=== PATIENT | male | born 1950 | race Two or more races ===

== ENCOUNTER 2019-03-08 17:32 | Inpatient (IN) | payer MEDICAID, OTHER ==
[~2019-03-08] VITALS: Ht 167.6 cm; Wt 63.0 kg
[2019-03-08] MEDS ORDERED: SODIUM CHLORIDE 0.9% 1,000 ML IV ONE (19:11)
[2019-03-08] MEDS ORDERED: MECLIZINE 25MG TABLET PO ONE (19:15)
[2019-03-08 19:46] LABS: HEMATOCRIT. 39.2 % (42.0-52.0); HEMOGLOBIN. 13.4 g/dL (14.0-18.0); MEAN CORPUSCULAR HEMOGLOBIN 34.6 pg (28.0-32.0); MEAN CORPUSCULAR VOLUME 101.1 fL (80.0-94.0); MEAN PLATELET VOLUME 8.3 fl (7.4-10.4); PLATELET 207 x1000/uL (130-400); RED BLOOD CELL COUNT 3.87 mill/uL (4.7-6.1); RED CELL DISTRIBUTION WIDTH 12.8 % (11.6-14.6)
[2019-03-08 19:49] LABS: CHLORIDE 101 mEq/L (98-107)
[2019-03-08 19:54] LABS: ETHANOL BLOOD < 10 mg/dL
[2019-03-08 20:10] LABS: PLATELET ESTIMATE NORMAL
[2019-03-08 20:14] LABS: *AMPHETAMINES SCREEN URINE NEGATIVE (NEGATIVE); CANNABINOID URINE SCREEN NEGATIVE (NEGATIVE)
[2019-03-08 20:15] LABS: *BARBITURATES SCREEN URINE NEGATIVE (NEGATIVE); *BENZODIAZEPINES SCREEN URINE NEGATIVE (NEGATIVE); *COCAINE SCREEN URINE NEGATIVE (NEGATIVE); METHADONE URINE SCREEN NEGATIVE (NEGATIVE); OPIATES URINE SCREEN NEGATIVE (NEGATIVE)
[2019-03-08 20:16] LABS: PHENCYCLIDINE URINE SCREEN NEGATIVE (NEGATIVE)
[2019-03-08 20:29] LABS: CLARITY URINE CLEAR (CLEAR); COLOR URINE YELLOW (YELLOW); KETONES URINE NEGATIVE (NEGATIVE); LEUKOCYTE ESTERASE URINE NEGATIVE (NEGATIVE); NITRITE URINE NEGATIVE (NEGATIVE); OCCULT BLOOD URINE NEGATIVE (NEGATIVE); PH URINE 7.5 (4.5-8.0); PROTEIN URINE NEGATIVE (NEGATIVE); SPECIFIC GRAVITY URINE 1.022 (1.005-1.030); UROBILINOGEN URINE 0.2 E.U./dL (0.2-1.0)
[2019-03-08 20:40] LABS: PROTHROMBIN TIME 10.4 sec (9.6-11.0)
[2019-03-09] VITALS (7 sets, daily range): BP systolic 94–122; BP diastolic 48–67
[2019-03-09] MEDS ORDERED: CHOL100022 (00:45)
[2019-03-09] MEDS ORDERED: LEVO50TA8 (00:45)
[2019-03-09] MEDS ORDERED: DOXA8TAB81 (00:45)
[2019-03-09] MEDS ORDERED: ANUHCC (00:45)
[2019-03-09] MEDS ORDERED: SIMV20TA6 (00:45)
[2019-03-09] MEDS ORDERED: FINA5TAB11 (00:45)
[2019-03-09] MEDS ORDERED: MECLIZINE 25MG TABLET PO PRN (02:30)
[2019-03-09] MEDS ORDERED: ACETAMINOPHEN 325MG TABLET PO PRN (02:30)
[2019-03-09] MEDS: TAMSULOSIN HCL 0.4MG SR CAPSULE PO SCH ×2 (03:40→09:00)
[2019-03-09] MEDS: ASPIRIN 81MG TABLET PO SCH ×8 (03:40→13:04)
[2019-03-09] MEDS: ENOXAPARIN 40MG/0.4ML SYR SUBCUT SCH (09:00)
[2019-03-09 16:19] LABS: BASOPHILS % 1.1 % (0.0-2.0); EOSINOPHILS % 2.1 % (0.0-5.0); HEMATOCRIT. 36.7 % (42.0-52.0); HEMOGLOBIN. 12.6 g/dL (14.0-18.0); LYMPHOCYTES % 26.6 % (20.0-50.0); MEAN CORPUSCULAR HEMOGLOBIN 34.8 pg (28.0-32.0); MEAN CORPUSCULAR VOLUME 101.4 fL (80.0-94.0); MONOCYTES % 11.7 % (2.0-8.0); NEUTROPHILS % 58.5 % (40.0-76.0); PLATELET 210 x1000/uL (130-400); RED BLOOD CELL COUNT 3.62 mill/uL (4.7-6.1); RED CELL DISTRIBUTION WIDTH 13.3 % (11.6-14.6)
[2019-03-09 16:25] LABS: CHLORIDE 108 mEq/L (98-107)
[2019-03-09 16:35] LABS: T4 FREE 1.05 ng/dL (0.76-1.46)
[2019-03-10] VITALS: BP 123/62
[2019-03-10] MEDS ORDERED: ONDANSETRON HCL 4MG/2ML INJ IV PRN (00:45)
[2019-03-10] MEDS ORDERED: ACETAMINOPHEN 325MG TABLET PO PRN (00:45)
[2019-03-10] MEDS ORDERED: DIPHENHYDRAMINE 50MG/ML VIAL IV PRN (00:45)
[2019-03-10] MEDS ORDERED: LORAZEPAM 0.5MG TABLET PO PRN (00:45)
[2019-03-10] MEDS ORDERED: SODIUM CHLORIDE 0.9% 1,000 ML IV SCH (02:00)
[2019-03-10 04:00] VITALS: BP 133/68
[2019-03-10 08:00] VITALS: BP 138/73
[2019-03-10] MEDS ORDERED: ASPIRIN 81MG TABLET PO SCH (09:00)
[2019-03-10] MEDS ORDERED: ENOXAPARIN 40MG/0.4ML SYR SUBCUT SCH (09:00)
[2019-03-10] MEDS ORDERED: TAMSULOSIN HCL 0.4MG SR CAPSULE PO SCH (09:00)
[2019-03-10 12:00] VITALS: BP 131/71
[2019-03-10 14:50] VITALS: BP 135/74
== END 2019-03-10 15:35 | disposition home or self-care (01) | DRG 149 ==
LOC: ER 17:32 → EDBEDREQ 21:52 → EDBEDREQTM 21:52 → ENRESERV 23:04 → 6WST 23:56
PROVIDERS: ADMIT Internal Medicine; ATTEND Internal Medicine
DX: R42 Dizziness and giddiness (principal); E87.1 Hypo-osmolality and hyponatremia; E78.00 Pure hypercholesterolemia, unspecified; E07.9 Disorder of thyroid, unspecified; N40.0 Benign prostatic hyperplasia without lower urinary tract symptoms; Z80.9 Family history of malignant neoplasm, unspecified; D64.9 Anemia, unspecified
CPT/HCPCS: 36415; 71045; 80305; 80320; 81003; 84153; 84439; 84443; 84484; 93005; 99285; J1650; J7030; J8597; G0103; G0480